=== PATIENT | male | born 1990 | race Caucasian/White ===

== ENCOUNTER → 2022-07-29 08:39 | Outpatient (CLI) | payer OTHER, SELFPAY | PROVIDERS: PCP Family Medicine; Visit Provider Physician Assistant | DX: L02.31 Cutaneous abscess of buttock (principal) | CPT/HCPCS: 87070; 87075; 87077; 87147; 87186; 87205 ==

== ENCOUNTER → 2022-08-04 09:36 | Outpatient (CLI) | payer OTHER, SELFPAY ==
[2022-08-04 19:34] LABS: Hemoglobin A1C% w Est Avg Glu 5.1 % (4.0-6.0)
[2022-08-04 19:35] LABS: Alanine Aminotransferase 30 IU/L (<50); Albumin 4.5 g/dL (3.5-5.0); Albumin Globulin Ratio 1.3 (1.0-2.8); Alkaline Phosphatase 74 U/L (38-126); Aspartate Aminotransferase 25 IU/L (17-59); BUN Creatinine Ratio 12.6 (6-22); Bilirubin Total 0.8 mg/dL (0.2-1.3); Blood Urea Nitrogen 12 mg/dL (9-20); Calcium 9.6 mg/dL (8.4-10.2); Carbon Dioxide 26 mmol/L (22-32); Chloride 101 mmol/L (98-107); Estimated Glomerular Filt Rate > 60 mL/min (>60); Globulin 3.5 g/dL (1.7-4.1); Glucose 127 mg/dL (70-100); HEMOLYSIS < 15 (0-50); Potassium 4.1 mmol/L (3.4-5.1); Sodium 139 mmol/L (137-145)
[2022-08-04 19:39] LABS: Add Manual Diff / Slide Review NO; Basophils Absolute Auto 0 /uL (0-100); Basophils Percent Auto 0.5 % (0-2); Eosinophils Absolute Auto 0 /uL (0-450); Eosinophils Percent Auto 0.4 % (2-4); Hematocrit 44.9 % (41-53); Hemoglobin 15.4 g/dL (13.5-17.5); Lymphocytes Absolute Auto 1200 /uL (1100-4500); Mean Corpuscular HGB Conc 34.4 % (30-36); Mean Corpuscular Hemoglobin 29.6 PG (26-34); Mean Corpuscular Volume 86.1 fL (80-100); Monocytes Absolute Auto 400 /uL (0-900); Monocytes Percent Auto 8.2 % (3-14); Neutrophils Absolute Auto 3200 /uL (1500-7000); Neutrophils Percent Auto 65.9 % (50-75); Platelet Count 216 X10^3/uL (150-400); Red Blood Cell Count 5.22 X10^6/uL (4.5-5.9); Red Cell Distribution Width 12.3 % (11.6-14.8); White Blood Cell Count 4.9 X10^3/uL (4.5-11.0)
[2022-08-04 20:03] LABS: TSH w/ Reflex to FT4 0.51 uIU/mL (0.47-4.68)
== END ==
PROVIDERS: PCP Family Medicine; Visit Provider Physician Assistant
DX: L02.31 Cutaneous abscess of buttock (principal); R07.89 Other chest pain; R42 Dizziness and giddiness
CPT/HCPCS: 80053; 83036; 84443; 85025

== ENCOUNTER 2022-08-04 14:14 | Emergency (ER) | payer OTHER, SELFPAY ==
[2022-08-04] VITALS (8 sets, daily range): BP systolic 131–178; BP diastolic 88–105; PULSE 62–76; RESP 17–26; TEMP 37.2; O2SAT 96–99
--- NOTE | 2022-08-04 14:31 | ED_ITS ---
HPI - Arrhythmia/Palpitations General Chief Complaint: Arrhythmia/Palpitations Stated Complaint: sent by [employer] rapid heart rate/dizzy/lightheaded Time Seen by Provider: 08/04/22 14:31 Source: patient Mode of arrival: Ambulatory History of Present Illness HPI narrative: Otherwise healthy 32-year-old gentleman presents with palpitations. He states July 17 he had his 1st episode describes his heart racing feeling lightheaded pressure on his heart both anterior and laterally. He states that it usually is worse as he is laying down to sleep sometimes interrupting his sleep. Even when he isn't feeling that he is tachycardic he is can sometimes have the anterior lateral chest pain. Also has had a left buttock abscess that has been intermittently draining over the last 8 months he is concerned that that might be contributing to the heart abnormalities. Additional concerns include myocarditis from COVID vaccine. He is had multiple ENT calls on [place] and has not yet documented any cardiac irregularity arrhythmia on EKGs. He does not describe fevers, cough, chills. Does not describe a history of anxiety, substance use no recent increase in energy drinks or stimulants. He does report that he has difficulty sleeping and this entire episode with the heart palpitations when he is laying down is exacerbating that difficulty. Also complains of pain and tightness across trapezius muscles extending into shoulders bilaterally. Related Data Previous Rx's Medication Instructions Recorded doxycycline hyclate 100 mg capsule 100 mg PO BID #28 caps 07/29/22 metoprolol tartrate 25 mg tablet 25 mg PO BID PRN palpitation #30 08/04/22 tabs Allergies Allergy/AdvReac Type Severity Reaction Status Date / Time No Known Drug Allergies Allergy Verified 08/04/22 14:29 Review of Systems Review of Systems Narrative: Pertinent positive and negative findings as per HPI Patient History Medical History (Updated 08/04/22 @ 15:34 by Arianne Laurent MD) Rectal fissure Family History Grandmother Cancer Social History Smoking Status: Never smoker alcohol intake: current Smoking Status: Never smoker alcohol intake frequency: other Substance Use Type: does not use Exam Initial Vital Signs Initial Vital Signs: Vital Signs Temperature 98.9 F 08/04/22 14:25 Pulse Rate 76 08/04/22 14:25 Respiratory Rate 18 08/04/22 14:25 Blood Pressure 178/105 H 08/04/22 14:25 Pulse Oximetry 98 08/04/22 14:25 Oxygen Delivery Method 08/04/22 14:25 General: Healthy appearing, in no acute distress. Able to give a complete and coherent history. Well-nourished well-developed HEENT: Moist mucous membranes, normal sclera with reactive pupils, Neck: No thyroid abnormalities palpable, supple Respiratory: Lungs are clear to auscultation, no wheezing no rales no rhonchi. Full and symmetrical air movement Cardiac: Regular rate and rhythm, no murmurs with careful auscultation Abdomen: Soft, nontender, good bowel tones, no flank pain Skin: Warm and dry, no rashes Neurologic: Grossly neurologically intact with no obvious asymmetries or abnormalities Extremities: No trauma, well perfused Psych: Cooperative, appropriate insight and affect Course Orders Ordered: ED Orders 08/04/22 14:35 Complete Blood Count AUTO DIFF Stat Comprehensive Metabolic Panel Stat D Dimer Stat Lipase Stat Magnesium Stat Prothrombin Time INR Stat Troponin & CK Cardiac Panel Stat 08/04/22 14:39 XR chest 2V Stat EKG-12 Lead Stat Vital Signs Vital signs: Vital Signs - 8 hr 08/04/22 14:25 08/04/22 15:30 08/04/22 15:46 Temperature 98.9 F Pulse Rate 76 67 66 Respiratory Rate 18 17 Blood Pressure 178/105 H 157/97 H Pulse Oximetry 98 99 97 Oxygen Delivery Method Room Air Room Air Room Air 08/04/22 15:48 08/04/22 15:48 08/04/22 16:00 Temperature Pulse Rate 64 Respiratory Rate 18 Blood Pressure 138/93 H 141/91 H Pulse Oximetry 97 Oxygen Delivery Method 08/04/22 16:00 Temperature Pulse Rate 71 Respiratory Rate 22 Blood Pressure Pulse Oximetry 97 Oxygen Delivery Method MDM - Arrhythmia/Palpitations Lab Data Result diagrams: 08/04/22 14:35 08/04/22 14:35 Labs: Lab Results 08/04/22 08/04/22 08/04/22 Range/Units 14:35 14:35 14:35 WBC 7.9 (4.5-11.0) X10^3/uL RBC 5.31 (4.5-5.9) X10^6/uL Hgb 15.8 (13.5-17.5) g/dL Hct 46.0 (41-53) % MCV 86.6 (80-100) fL MCH 29.7 (26-34) PG MCHC 34.3 (30-36) % RDW 12.6 (11.6-14.8) % Plt Count 229 (150-400) X10^3/uL Neut % (Auto) 64.6 (50-75) % Lymph % (Auto) 26.7 (25-40) % Frederick % (Auto) 7.9 (3-14) % Eos % (Auto) 0.3 L (2-4) % Baso % (Auto) 0.5 (0-2) % Neut # (Auto) 5100 (6068-5032) /uL Lymph # (Auto) 2100 (6081-7846) /uL Frederick # (Auto) 600 (0-900) /uL Eos # (Auto) 0 (0-450) /uL Baso # (Auto) 0 (0-100) /uL PT 13.2 H (10.1-12.7) SECONDS INR 1.2 (0.9-1.3) D-Dimer (<500) ng/ml Sodium 138 (137-145) mmol/L Potassium 4.1 (3.4-5.1) mmol/L Chloride 102 (98-107) mmol/L Carbon Dioxide 25 (22-32) mmol/L BUN 12 (9-20) mg/dL Creatinine 0.88 (0.66-1.25) mg/dL Estimated GFR > 60 (>60) mL/min BUN/Creatinine Ratio 13.6 (6-22) Glucose 110 H (70-100) mg/dL Calcium 9.3 (8.4-10.2) mg/dL Magnesium 1.9 (1.6-2.3) mg/dL Total Bilirubin 0.6 (0.2-1.3) mg/dL AST 26 (17-59) IU/L ALT 32 (<50) IU/L Alkaline Phosphatase 81 (38-126) U/L Total Creatine Kinase 29 L (55-170) U/L CK-MB (CK-2) TNP CK-MB (CK-2) Rel Index TNP Troponin I < 0.012 (0.01-0.034) ng/mL Total Protein 8.5 H (6.3-8.2) g/dL Albumin 4.7 (3.5-5.0) g/dL Globulin 3.8 (1.7-4.1) g/dL Albumin/Globulin Ratio 1.2 (1.0-2.8) Lipase 56 (23-300) U/L 08/04/22 08/04/22 Range/Units 14:35 14:35 WBC (4.5-11.0) X10^3/uL RBC (4.5-5.9) X10^6/uL Hgb (13.5-17.5) g/dL Hct (41-53) % MCV (80-100) fL MCH (26-34) PG MCHC (30-36) % RDW (11.6-14.8) % Plt Count (150-400) X10^3/uL Neut % (Auto) (50-75) % Lymph % (Auto) (25-40) % Frederick % (Auto) (3-14) % Eos % (Auto) (2-4) % Baso % (Auto) (0-2) % Neut # (Auto) (3971-3521) /uL Lymph # (Auto) (0754-0156) /uL Frederick # (Auto) (0-900) /uL Eos # (Auto) (0-450) /uL Baso # (Auto) (0-100) /uL PT (10.1-12.7) SECONDS INR (0.9-1.3) D-Dimer < 215 (<500) ng/ml Sodium (137-145) mmol/L Potassium (3.4-5.1) mmol/L Chloride (98-107) mmol/L Carbon Dioxide (22-32) mmol/L BUN (9-20) mg/dL Creatinine (0.66-1.25) mg/dL Estimated GFR (>60) mL/min BUN/Creatinine Ratio (6-22) Glucose (70-100) mg/dL Calcium (8.4-10.2) mg/dL Magnesium (1.6-2.3) mg/dL Total Bilirubin (0.2-1.3) mg/dL AST (17-59) IU/L ALT (<50) IU/L Alkaline Phosphatase (38-126) U/L Total Creatine Kinase Cancelled (55-170) U/L CK-MB (CK-2) Cancelled CK-MB (CK-2) Rel Index Cancelled Troponin I (0.01-0.034) ng/mL Total Protein (6.3-8.2) g/dL Albumin (3.5-5.0) g/dL Globulin (1.7-4.1) g/dL Albumin/Globulin Ratio (1.0-2.8) Lipase (23-300) U/L Imaging Data Chest x-ray: Radiologist's Impresson: FINDINGS:? ? Surgical changes and devices:? None.? ? Lungs and pleura:? Lungs are clear.? No pleural effusions or pneumothorax.? ? Mediastinum:? Mediastinal contours are normal.? Heart size is normal.? ? Bones and chest wall:? No suspicious bony abnormalities.? Soft tissues appear unremarkable.? ? IMPRESSION:? No acute cardiopulmonary findings. ? ? Dictated by: Yumiko Rod M.D. on 08/04/2022 at 15:03 ? ? ECG Data Interpretation: Independently interpreted by me Normal sinus rythm at 71 normal interval, normal axis no acute ischemic changes MDM Narrative Medical decision making narrative: 32-year-old gentleman presents with episodes of palpitation typically most bothersome when he is laying down to sleep but can occur throughout the day associated with chest tightness heaviness and pressure across his upper shoulders. Started initially July 17 has not been able to capture the palpitations on EKG Differential includes acute coronary syndrome, cardiomyopathy, pericarditis, thyroid abnormalities, pleural effusion, pneumonia, pulmonary embolism, anxiety, Labs are reassuring with no evidence of overall infection, significant anemia, cardiomyopathy or acute coronary syndrome. Thyroid studies and D-dimer are both currently pending. Will discuss with his provider in [facility] to discuss follow-up. She is already working on arranging a Zio patch and Cardiology consult. Nursing staff from the [facility] will contact the patient tomorrow with additional details. Discharge Plan Departure Patient Disposition: Home Clinical Impression: Palpitations Instructions: DI for Arrhythmias Activity Restrictions/Additional Instructions: Thank you for coming in today Your workup was quite reassuring. I do not see any evidence of overwhelming bacterial infection, heart attack or heart attack like syndrome. Your EKG today was nice and normal however and EKGs a brief period in time and we clearly have not ever documented the palpitations that you are experiencing so that we can fully make a diagnosis. Using a extended monitoring device such as a Zio patch will be helpful in catching some of these palpitations. Physician's apartment assistant manager Iris [facility] [employer] is already working on arranging this as well as outpatient Cardiac consultation. In the meantime, I am going to give you a prescription for metoprolol. This is both a heart rate and blood pressure medication. For minor episodes of palpitations that are is troublesome as you are noting, sometimes simply slowing down your heart slightly causes significantly decreased palpitations and significantly decreased discomfort from them. You can use 25 mg of metoprolol up to 2 times a day and it should be taken when you are having particularly troublesome symptoms of palpitations. Prescription was electronically transmitted to [facility]. If you find that you are getting worse or develop any new symptoms, please feel free to return to the emergency department for further evaluation. Prescriptions: New metoprolol tartrate 25 mg tablet 25 mg PO BID PRN (Reason: palpitation) Qty: 30 0RF No Action doxycycline hyclate 100 mg capsule 100 mg PO BID Qty: 28 0RF Referrals: Layo Bowser MD [Primary Care Provider] - Stand Alone Forms: Patient Portal/API
--- NOTE | 2022-08-04 14:39 | DI.RAD.S_ITS ---
PROCEDURE: XR CHEST 2V INDICATIONS: palpitations TECHNIQUE: 2 views of the chest were acquired. COMPARISON: None. FINDINGS: Surgical changes and devices: None. Lungs and pleura: Lungs are clear. No pleural effusions or pneumothorax. Mediastinum: Mediastinal contours are normal. Heart size is normal. Bones and chest wall: No suspicious bony abnormalities. Soft tissues appear unremarkable. IMPRESSION: No acute cardiopulmonary findings. Dictated by: Yumiko Rod M.D. on 08/04/2022 at 15:03 Approved by: Yumiko Rod M.D. on 08/04/2022 at 15:03
[2022-08-04 14:44] LABS: Add Manual Diff / Slide Review NO; Basophils Absolute Auto 0 /uL (0-100); Basophils Percent Auto 0.5 % (0-2); Eosinophils Absolute Auto 0 /uL (0-450); Eosinophils Percent Auto 0.3 % (2-4); Hemoglobin 15.8 g/dL (13.5-17.5); Lymphocytes Absolute Auto 2100 /uL (1100-4500); Lymphocytes Percent Auto 26.7 % (25-40); Mean Corpuscular HGB Conc 34.3 % (30-36); Mean Corpuscular Hemoglobin 29.7 PG (26-34); Mean Corpuscular Volume 86.6 fL (80-100); Monocytes Absolute Auto 600 /uL (0-900); Monocytes Percent Auto 7.9 % (3-14); Neutrophils Absolute Auto 5100 /uL (1500-7000); Neutrophils Percent Auto 64.6 % (50-75); Platelet Count 229 X10^3/uL (150-400); Red Blood Cell Count 5.31 X10^6/uL (4.5-5.9); Red Cell Distribution Width 12.6 % (11.6-14.8); White Blood Cell Count 7.9 X10^3/uL (4.5-11.0)
[2022-08-04 14:50] LABS: INR 1.2 (0.9-1.3); Prothrombin Time 13.2 SECONDS (10.1-12.7)
[2022-08-04 14:54] LABS: Alanine Aminotransferase 32 IU/L (<50); Albumin 4.7 g/dL (3.5-5.0); Albumin Globulin Ratio 1.2 (1.0-2.8); Alkaline Phosphatase 81 U/L (38-126); Aspartate Aminotransferase 26 IU/L (17-59); BUN Creatinine Ratio 13.6 (6-22); Bilirubin Total 0.6 mg/dL (0.2-1.3); Blood Urea Nitrogen 12 mg/dL (9-20); Calcium 9.3 mg/dL (8.4-10.2); Carbon Dioxide 25 mmol/L (22-32); Chloride 102 mmol/L (98-107); Creatine Kinase 29 U/L (55-170); Estimated Glomerular Filt Rate > 60 mL/min (>60); Globulin 3.8 g/dL (1.7-4.1); Glucose 110 mg/dL (70-100); HEMOLYSIS < 15 (0-50); Lipase 56 U/L (23-300); Magnesium 1.9 mg/dL (1.6-2.3); Potassium 4.1 mmol/L (3.4-5.1); Sodium 138 mmol/L (137-145); Total Protein 8.5 g/dL (6.3-8.2)
[2022-08-04 15:06] LABS: Troponin I < 0.012 ng/mL (0.01-0.034)
[2022-08-04 16:17] LABS: D Dimer < 215 ng/ml (<500)
[2022-08-04] MEDS: METOPROLOL IR 25 MG TABLET PO (16:57)
== END 2022-08-04 17:15 | disposition home or self-care (01) ==
PROVIDERS: Emergency Provider Emergency Medicine; PCP Family Medicine
DX: R00.2 Palpitations (principal); R07.9 Chest pain, unspecified; L02.31 Cutaneous abscess of buttock; R07.89 Other chest pain; R42 Dizziness and giddiness
CPT/HCPCS: 36415; 71046; 80053; 82550; 83036; 83690; 83735; 84443; 84484; 85025; 85379; 85610; 93005; 99284

== ENCOUNTER → 2022-08-12 09:41 | Outpatient (CLI) | payer OTHER, SELFPAY ==
--- NOTE | 2022-09-03 08:53 | P.HOLT.S_ITS ---
Steam Conditioner Operator Report Referral & Results Date Patient Seen: 08/12/22 Requesting provider: Lu Simmons Indication: Palpitations Duration of monitoring (days): 14 Diary information: There were 13 patient triggered events and 1 patient diary entry Patient diary entry associated with sinus rhythm only Patient triggered events associated variably (within 45 seconds) with sinus rhythm, PACs and PVCs Data: Minimum heart rate identified was 39 beats per minute at 05:49 on 08/20/2022 Maximum heart rate was sinus and 166 beats per minute at 14:52 on 08/16/2022 Less than 1% of identified beats were ventricular or supraventricular ectopic in origin, which would classify them as rare. There were no pauses of 3 seconds or longer or episodes of atrial fibrillation identified on this study Impression: 14 day service desk specialist demonstrating simple PACs and PVCs without clear correlation between patient reported symptoms in any single dysrhythmia No other more serious dysrhythmias identified on this study Clinical correlation suggested
== END ==
PROVIDERS: PCP Family Medicine; Referring Provider Physician Assistant; Visit Provider Physician Assistant
DX: R00.2 Palpitations (principal); R42 Dizziness and giddiness; R55 Syncope and collapse
CPT/HCPCS: 93246; 93248

== ENCOUNTER 2022-10-27 10:52 | Day surgery (SDC) | payer OTHER, SELFPAY ==
[2022-10-20 08:37] VITALS: BMI 33.0
[2022-10-27 11:08] VITALS: BP 124/78; PULSE 68; RESP 16; TEMP 36.2; O2SAT 97; BMI 32.0
[2022-10-27] MEDS: LACTATED RINGERS 1,000 ML 42 ML IV (11:24)
--- NOTE | 2022-10-27 11:59 | P.HP_ITS ---
History of Present Illness History of Present Illness Date Patient Seen: 10/27/22 Time Patient Seen: 11:59 Chief complaint: Exam Under Anesthesia Rectal/Poss. Fistulotomy, po Narrative: Rubén is here for his exam under anesthesia. He did have evaluation for his br adycardia and no significant abnormalities were found. Patient History Medical History (Updated 09/11/22 @ 13:14 by Layo Bowser MD) Rectal fissure Family & Social History Family History Grandmother Cancer Social History: household members spouse Tobacco & Substance use: Smoking Status Never smoker alcohol intake current alcohol intake frequency a few times a week Substance Use Type marijuana Meds Home Medications and Allergies Home Medications Medication Instructions Recorded Confirmed Type albuterol sulfate 90 mcg/actuation 2 puff inhalation Q6H PRN 08/14/22 10/27/22 Rx aerosol inhaler shortness of breath or wheezing #8.5 grams Allergies Allergy/AdvReac Type Severity Reaction Status Date / Time No Known Drug Allergies Allergy Verified 10/27/22 11:04 Exam Vital Signs (past 8 hours): - 10/27/22 11:08 Temperature 97.2 F L Pulse Rate 68 Respiratory Rate 16 Blood Pressure 124/78 Pulse Oximetry 97 Oxygen Delivery Method Room Air Oxygen Delivery Method Room Air Const General: healthy appearing Assessment & Plan Assessment and plan (1) [id number]: Status: Acute Plan We will proceed to the OR for examination under anesthesia and possible fistulotomy, possible seton
--- NOTE | 2022-10-27 12:44 | SUR.OPER ---
Lithotomy on padded OR bed, head on pillow, arms secured on padded arm boards at <90 degrees abduction. Legs secured in padded yellow fins stirrups.
[2022-10-27] MEDS: BUPIVACAINE 0.25% (PF) 30 ML, EPINEPHrine 0.15 MG INJ (12:55)
--- NOTE | 2022-10-27 13:18 | P.OP_ITS ---
Operative Date/Time/Diagnoses Date of procedure: 10/27/22 Time of procedure: 13:18 Pre-op diagnosis: [id number] Post-op diagnosis: same Procedure & Clinicians Procedure: Examination under anesthesia and incision and drainage Same procedure as scheduled: Yes Surgeon: Braden Narvaez Operative Notes Procedure in detail: The patient was brought to the operating room and placed on the table in the supine position. General endotracheal anesthesia was induced. The patient was then positioned in high lithotomy and the perineum was prepped and draped in the usual fashion. No antibiotics were indicated. A digital rectal exam was performed with 2 well lubricated fingers and the anus was examined with the Hill-Melvin retractor. The external opening was seen in the left anterior quadrant quite a distance from the anal verge. A small amount of purulent fluid can be expressed with palpation A probe was gently inserted to identify the tract but it was so far away from the anal verge that a counter incision was made about half-way to the anal verge using a knife. The tract seemed to be directed towards the anterior perianal region. The internal opening could not be easily identified. Hydrogen peroxide was inserted using an Angiocath tip into the external openings and at 1 point some bubbles were noted in the anterior portion of the rectum just above the dentate line but it could not be easily reproduced. The internal portion of the tract could not be palpated. Exam was limited because he was in the lithotomy position. It was not possible to identify the tract without risking creation of a false tract and so the attempt find the internal opening was abandoned and a vessel loop was threaded from new external opening to the original external opening to keep the tract open for drainage. EBL: 10 mL Post-operative Condition: stable Disposition: PACU
[2022-10-27 13:25] VITALS: BP 148/85; PULSE 78; RESP 14; TEMP 36.4; O2SAT 96
[2022-10-27 13:30] VITALS: BP 135/86; PULSE 60; RESP 16; O2SAT 95
[2022-10-27 13:35] VITALS: BP 139/99; PULSE 58; RESP 16; O2SAT 99
[2022-10-27 13:50] VITALS: BP 138/90; PULSE 60; RESP 16; O2SAT 98
== END 2022-10-27 14:00 | disposition home or self-care (01) ==
PROVIDERS: PCP Family Medicine; Referring Provider Surgery; Visit Provider Surgery
PROC: (CPT 45990; principal; 2022-10-27 12:15)
DX: K60.3 Anal fistula (principal)
CPT/HCPCS: 46275; J0171; J1100; J2250; J2405; J2704; J3010

== ENCOUNTER → 2022-11-21 09:18 | Outpatient (CLI) | payer OTHER, SELFPAY ==
--- NOTE | 2022-11-21 09:19 | DI.MRI.S_ITS ---
PROCEDURE: MR PELIS WO/W CON INDICATIONS: ras-rectal fistula TECHNIQUE: Coronal HASTE through the pelvis, oblique axial and coronal T1 and T2 fast spin echo through the anal canal. After the administration of contrast, oblique axial and coronal VIBE or T1 fast spin echo with fast saturation through the anal canal. COMPARISON: None. FINDINGS: Image quality: Excellent. Anorectal region: Arising from the 12 o'clock position of the lower rectum (series 11, image 14), 4 cm from the anorectal verge, there is a transsphincteric fistula which extends anteriorly, and drains to left peroneum, posterior to the anus (series 11, image 22). Active edema along the tract, with a small [id number] focus of T2 fluid measuring 1.7 x 0.8 cm (series 11, image 20). The origin of the fistula appears to be just below the levator ani musculature. The fistula tract measures 6 cm in length. Other soft tissues: Bladder wall thickness is normal. No free pelvic fluid. Visualized bowel loops are normal in caliber. Bones: Visualized bony structures demonstrate normal marrow signal. 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 Dictated by: Po Stanley M.D. on 11/23/2022 at 8:23 Approved by: Po Stanley M.D. on 11/23/2022 at 8:37
== END ==
PROVIDERS: PCP Family Medicine; Referring Provider Surgery; Visit Provider Surgery
DX: K60.3 Anal fistula (principal)
CPT/HCPCS: 72197; A9579

== ENCOUNTER 2023-08-03 08:53 | Day surgery (SDC) | payer OTHER, SELFPAY ==
[2023-07-27 12:47] VITALS: BMI 32.3
[2023-08-03 10:06] VITALS: BP 138/91; PULSE 70; RESP 18; TEMP 36.8; O2SAT 98; BMI 31.5
[2023-08-03] MEDS: LACTATED RINGERS 1,000 ML 42 ML IV ×2 (10:16→12:33)
--- NOTE | 2023-08-03 11:35 | P.HP_ITS ---
History of Present Illness History of Present Illness Date Patient Seen: 08/03/23 Time Patient Seen: 11:35 Chief complaint: Fistulotomy Narrative: Rubén is 33-year-old man who presents with fistula in ano. He underwent an examination under anesthesia in September of last year and a new external opening was created to shorten the distance of the tract that the fistula tract could not be identified with certainty. Rubén returns now to have a second attempt at a fistulotomy in prone position. [facility] Medical History Rectal fissure Surgical History (Updated 07/27/23 @ 12:52 by Melina Wren RN) History of surgery (10/27/22) Family History Grandmother Cancer Social History household members: spouse Smoking Status: Never smoker alcohol intake: current Meds Home Medications and Allergies Allergies Allergy/AdvReac Type Severity Reaction Status Date / Time No Known Drug Allergies Allergy Verified 08/03/23 10:00 Exam Vital Signs (past 8 hours): - 08/03/23 10:06 Temperature 98.2 F Pulse Rate 70 Respiratory Rate 18 Blood Pressure 138/91 H Pulse Oximetry 98 Oxygen Delivery Method Room Air Oxygen Delivery Method Room Air Const General: healthy appearing Assessment & Plan Assessment and plan (1) [id number]: Status: Acute Assessment & Plan narrative: We discussed the plan for fistulotomy versus seton placement if it has a complex tract. He wishes to proceed.
--- NOTE | 2023-08-03 12:25 | SUR.OPER ---
Prone on padded OR bed, head in foam head support, gel chest rolls, gel pad under knees, pillow under lower legs, toes free of pressure, arms secured on padded arm boards at <90 degrees abduction. Safety belt at thigh.
[2023-08-03] MEDS: BUPIVACAINE LIPOSOME 266 MG/20 ML VIAL INJ (12:29)
[2023-08-03 12:57] VITALS: BP 144/97; PULSE 80; RESP 16; TEMP 36.3; O2SAT 95
--- NOTE | 2023-08-03 13:00 | P.OP_ITS ---
Operative Date/Time/Diagnoses Date of procedure: 08/03/23 Time of procedure: 13:00 Pre-op diagnosis: [id number] Post-op diagnosis: same Procedure & Clinicians Procedure: Examination under anesthesia Same procedure as scheduled: Yes Surgeon: Braden Narvaez Anesthesia Type: General Operative Notes Procedure in detail: The patient is a 33-year-old presented with an anal fistula in August of 2022. He underwent an examination under anesthesia with attempt at a fistulotomy in September of 2022 but tract could not be identified. The external opening at that time was relatively far from the anal verge and a new external opening was created that was closer to the anal verge. Did have MRI in October of 2022 which indicated a transsphincteric fistula. He continued to have drainage through the closer external opening and was consented for another attempt at a fistulotomy. The patient was brought to the operating room and placed in the prone lisa-knife position. The perineum was prepped and draped in the usual fashion and a time- out was performed. External opening was seen in the left anterior perineum about 3 cm from the anal verge. A faint palpable tract was felt directed towards the anterior dentate line. A well lubricated finger was inserted into the anus to dilate the sphincter. Two fingers were slowly inserted to dilate the sphincter further. A Hill-Melvin retractor was inserted and the distal rectum was inspected. There were some rather large hemorrhoids in the anterior rectum. Next, the external opening, located in the left anterior quadrant was gently probed. The tract could not be positively identified so we injected some hydrogen peroxide which demonstrated an internal opening in the anterior rectum just above the dentate line. The probe was again advanced but a direct tract could not be easily identified. Tip of the probe appeared to be traversing externally to the sphincter complex. The this point a decision was made to abort and referred the patient for a mucosal advancement flap or lift procedure. About 5 mL of Exparel were injected around the external opening and just distal to the anal verge in the anterior portion of the anoderm. An absorptive pad was inserted against the anus and mesh panties were applied. EBL: 5 mL Post-operative Condition: stable Disposition: PACU
[2023-08-03 13:02] VITALS: BP 134/92; PULSE 87; RESP 16; O2SAT 97
[2023-08-03 13:07] VITALS: BP 139/98; PULSE 77; RESP 16; O2SAT 98
[2023-08-03 13:12] VITALS: BP 144/104; PULSE 76; RESP 14; O2SAT 98
[2023-08-03 13:17] VITALS: BP 140/99; PULSE 76; RESP 14; TEMP 36.4; O2SAT 100
== END 2023-08-03 13:49 | disposition home or self-care (01) ==
PROVIDERS: PCP Family Medicine; Referring Provider Surgery; Visit Provider Surgery
PROC: (CPT 45990; principal; 2023-08-03 11:45)
DX: K60.3 Anal fistula (principal)
CPT/HCPCS: 45990; C9290; J0330; J1100; J1885; J2250; J2405; J2704; J3010